=== PATIENT | male | born 1965 ===

== ENCOUNTER 2017-06-27 12:02 | Day surgery (SDC) | payer BC ==
[~2017-06-27] VITALS: Ht 175.3 cm; Wt 107.6 kg
[~2017-06-27 12:02] MED LIST: AMLO10; COLCHICINE0.6 MG; INDO50; NAPR500EC; TRAM50
[2017-06-27] MEDS ORDERED: LOSA50 PO (12:44)
== END 2017-06-27 13:55 | disposition home or self-care (01) ==
LOC: ORSCSDS 12:02
PROVIDERS: Internal Medicine Gastroenterology
PROC: 0DBH8ZX Excision of Cecum, Via Natural or Artificial Opening Endoscopic, Diagnostic (ICD-10-PCS; principal; 2017-06-27 13:30)
DX: Z12.11 Encounter for screening for malignant neoplasm of colon (principal); D12.0 Benign neoplasm of cecum; K64.8 Other hemorrhoids
CPT/HCPCS: 88305; J7120